=== PATIENT | female | born 1990 | race African-American/Black ===

== ENCOUNTER 2018-02-21 17:40 | Outpatient (CLI) | END 2018-02-21 17:41 | disposition home or self-care (01) | LOC: AMBL 17:40 | PROVIDERS: ATTEND Internal Medicine Geriatric Medicine | DX: S89.91XA Unspecified injury of right lower leg, initial encounter (principal); V09.9XXA Pedestrian injured in unspecified transport accident, initial encounter; Z33.1 Pregnant state, incidental ==